=== PATIENT | female | born 1940 | race Caucasian/White ===

== ENCOUNTER 2018-05-18 06:15 | Day surgery (SDC) | payer OTHER ==
[~2018-05-18 06:15] MED LIST: ADRENOID CAPSU1 EACH PO; ATIVAN1 MG PO; AVAPRO300 MG PO; BONIVA150 MG PO; D3 DOTS2000 UNIT PO; FENOFIBRATE160 MG PO; FOLIC ACID1 MG PO; NEURONTIN300 MG PO; PROTONIX40 MG PO; TOPROL XL50 M1 PO; ZANTAC300 MG PO; ZOCOR20 MG PO
== END 2018-05-18 16:00 | disposition home or self-care (01) ==
LOC: CIR.AMB 06:15
DX: D12.9 Benign neoplasm of anus and anal canal (principal)

== ENCOUNTER 2018-07-22 05:20 | Day surgery (SDC) | payer OTHER | END 2018-07-22 10:40 | disposition home or self-care (01) | LOC: CIR.AMB 05:20 | DX: R15.9 Full incontinence of feces (principal) ==